=== PATIENT | female | born 1970 | race Caucasian/White ===

== ENCOUNTER 2018-04-24 19:39 | Emergency (ER) | payer OTHER ==
[~2018-04-24] VITALS: Ht 175.3 cm; Wt 136.1 kg
[2018-04-24 20:30] VITALS: BP 161/114
[2018-04-24] MEDS ORDERED: SULF1TAB24 PO (21:22)
[2018-04-24] MEDS ORDERED: MUPI22OI2 TP (21:22)
--- NOTE | 2018-04-24 21:22 | PHYS DOC ---
Adult General Chief Complaint Chief Complaint: INSECT BITE HPI HPI Patient is a 48 year old [f__sex] who presents with [] Review of Systems Review of Systems Constitutional: Denies fever or chills [] Eyes: Denies change in visual acuity, redness, or eye pain [] HENT: Denies nasal congestion or sore throat [] Respiratory: Denies cough or shortness of breath [] Cardiovascular: No additional information not addressed in HPI [] GI: Denies abdominal pain, nausea, vomiting, bloody stools or diarrhea [] : Denies dysuria or hematuria [] Musculoskeletal: Denies back pain or joint pain [] Integument: Denies rash or skin lesions [] Neurologic: Denies headache, focal weakness or sensory changes [] Endocrine: Denies polyuria or polydipsia [] All other systems were reviewed and found to be within normal limits, except as documented in this note. Physical Exam Physical Exam Constitutional: Well developed, well nourished, no acute distress, non-toxic appearance. [] HENT: Normocephalic, atraumatic, bilateral external ears normal, oropharynx moist, no oral exudates, nose normal. [] Eyes: PERRLA, EOMI, conjunctiva normal, no discharge. [] Neck: Normal range of motion, no tenderness, supple, no stridor. [] Cardiovascular:Heart rate regular rhythm, no murmur [] Lungs & Thorax: Bilateral breath sounds clear to auscultation [] Abdomen: Bowel sounds normal, soft, no tenderness, no masses, no pulsatile masses. [] Skin: Warm, dry, no erythema, no rash. [] Back: No tenderness, no CVA tenderness. [] Extremities: No tenderness, no cyanosis, no clubbing, ROM intact, no edema. [] Neurologic: Alert and oriented X 3, normal motor function, normal sensory function, no focal deficits noted. [] Psychologic: Affect normal, judgement normal, mood normal. [] EKG EKG [] Radiology/Procedures Radiology/Procedures [] Course & Med Decision Making Course & Med Decision Making Pertinent Labs and Imaging studies reviewed. (See chart for details) [] Dragon Disclaimer Dragon Disclaimer This electronic medical record was generated, in whole or in part, using a voice recognition dictation system. Departure Departure Impression: Primary Impression: Abscess Disposition: 01 HOME, SELF-CARE Condition: STABLE Referrals: AYLIN GARCIA MD (PCP) Patient Instructions: Abscess Additional Instructions: Use the antibiotics as directed. Follow-up with your primary care provider in one week if not improving or return to the emergency department if worsening. Scripts Mupirocin (MUPIROCIN OINTMENT) 22 Gm Oint...g. 1 JONATHAN TP TID for WOUND CARE, #1 TUBE Prov: OPAL LUCIANO APRN 04/24/18 Sulfamethoxazole/Trimethoprim (BACTRIM DS TABLET) 1 Each Tablet 1 TAB PO BID for abscess, #20 TAB Prov: OPAL LUCIANO APRN 04/24/18 OPAL LUCIANO APRN Apr 24, 2018 21:22
== END 2018-04-24 21:25 | disposition home or self-care (01) ==
LOC: ER 19:39
DX: N61.1 Abscess of the breast and nipple (principal)
CPT/HCPCS: 99283

== ENCOUNTER → 2018-07-19 | Outpatient (CLI) | payer OTHER ==
[~2018-07-19] MED LIST: MUPI22OI2 TP; SULF1TAB24 PO
--- NOTE | 2018-07-19 15:48 | RAD ---
KNEE RIGHT 3V History: RIGHT KNEE PAIN X 3 MONTHS NO KNOWN INJURY. 3 view right knee with bilateral AP standing knee. No prior study for comparison Mild narrowing of the medial joint compartment of the right knee with small marginal osteophytes. Tiny osteophytes at the tibial spines, lateral compartment and patellofemoral compartment. No acute fracture or aggressive bone destruction. No evidence of dislocation. No significant soft tissue abnormality. Bilateral standing images demonstrates degenerative changes at the left knee, particularly medial compartment with moderate narrowing. IMPRESSION: Primary osteoarthritis. Electronically signed by: Jori Reyes MD (07/19/2018 3:45 PM) [id number]
--- NOTE | 2018-07-19 15:57 | RAD ---
EXAM: Bilateral knees, standing view. HISTORY: Pain. COMPARISON: Radiographs obtained on the same date. FINDINGS: There is moderate left and mild right medial compartment joint space narrowing with subchondral sclerosis and spurring. There is mild left genu varus. There is a bone island within the proximal left tibia. IMPRESSION: 1. Moderate left and mild right medial compartment osteoarthritis of both knees. 2. Mild left genu varus. Electronically signed by: Jasmin Villa MD (07/19/2018 3:54 PM) [place] [id number]
== END | disposition home or self-care (01) ==
LOC: RAD 14:53
PROVIDERS: ATTEND Family Medicine
DX: M17.0 Bilateral primary osteoarthritis of knee (principal); M21.162 Varus deformity, not elsewhere classified, left knee; M25.761 Osteophyte, right knee
CPT/HCPCS: 73562; 73565

== ENCOUNTER → 2018-07-27 | Outpatient (CLI) | payer OTHER ==
--- NOTE | 2018-07-27 09:28 | KCIC ---
Bilateral digital screening mammograms: Reason for examination: Routine screening. Comparison is made to previous study dated 01/11/2014. Interpretation was made with the benefit of CAD. The skin and nipples show no abnormalities. No abnormal axillary lymph nodes are seen. The breast parenchyma shows scattered fibroglandular density. (Breast density: Category B.) There are no dominant masses, suspicious calcifications or architectural distortions. Impression: No evidence of malignancy. Recommend routine screening. BI-RADS Category 1: Negative. "Our facility is accredited by the [employer] Mammography [employer]." This patient's information has been entered into a reminder system for the patient to be notified with the results of her examination and a target date for the next mammogram. Electronically signed by: Barbara Cornejo MD (07/27/2018 9:25 AM) [id number]
== END | disposition home or self-care (01) ==
LOC: KCIC MAMMO 08:24
PROVIDERS: ATTEND Family Medicine
DX: Z12.31 Encounter for screening mammogram for malignant neoplasm of breast (principal)
CPT/HCPCS: 77067

== ENCOUNTER → 2018-10-25 | Outpatient (CLI) | payer OTHER ==
--- NOTE | 2018-10-25 17:51 | KCIC ---
Sonography of the right axillary region Clinical indications: Mass of the right axilla. FINDINGS: Sonography of the right axillary lump was performed. There is a subcutaneous hypoechoic solid appearing nodule. This connects to a skin mole. This measures 14 mm x 12 mm x 3 mm in size. There is some vascularity within it. IMPRESSION: Solid appearing subcutaneous nodule connected to a skin nodule. Electronically signed by: Brandon Landers MD (10/25/2018 5:48 PM) [place] [id number]
== END | disposition home or self-care (01) ==
LOC: KCIC US 08:29
PROVIDERS: ATTEND Family Medicine
DX: R22.31 Localized swelling, mass and lump, right upper limb (principal)
CPT/HCPCS: 76881

== ENCOUNTER 2020-03-30 20:41 | Emergency (ER) | payer BC, OTHER ==
[~2020-03-30] VITALS: Ht 177.8 cm; Wt 136.4 kg
[2020-03-30 21:00] VITALS: BP 141/81
[2020-03-30] MEDS ORDERED: CLIN150C14 PO (21:27)
[2020-03-30] MEDS ORDERED: FAMO20TA5 PO (21:27)
[2020-03-30] MEDS ORDERED: DIPH25CA58 PO (21:27)
[2020-03-30] MEDS ORDERED: METH4TAB2 PO (21:27)
--- NOTE | 2020-03-30 21:27 | PHYS DOC ---
Past Medical History Past Medical History: No Pertinent History (INGE RUTHERFORD APRN) Past Surgical History: (INGE RUTHERFORD APRN) Smoking Status: Never Smoker Alcohol Use: Occasionally Drug Use: None (INGE RUTHERFORD APRN) General Adult EDM: Chief Complaint: ABSCESS HPI: HPI: Patient is a 49 year old female no significant medical history who presents to the ED today complaining of what she believes is a spider bite on the left axilla that she noted 4 days ago. Patient states she had a subjective fever. She also reports a rash. Denies any anaphylactic type reaction symptoms. (INGE RUTHERFORD APRN) Review of Systems: Review of Systems: Constitutional: Denies fever or chills. [] Eyes: Denies change in visual acuity. [] HENT: Denies nasal congestion or sore throat. [] Respiratory: Denies cough or shortness of breath. [] Cardiovascular: Denies chest pain or edema. [] GI: Denies abdominal pain, nausea, vomiting, bloody stools or diarrhea. [] : Denies dysuria. [] Musculoskeletal: Denies back pain or joint pain. [] Integument: Reports spider bite to the left axilla Neurologic: Denies headache, focal weakness or sensory changes. [] Psychiatric: Denies depression or anxiety. [] (INGE RUTHERFORD APRN) Heart Score: Risk Factors: Risk Factors: DM, Current or recent (<one month) smoker, HTN, HLP, family history of CAD, obesity. Risk Scores: Score 0 - 3: 2.5% MACE over next 6 weeks - Discharge Home Score 4 - 6: 20.3% MACE over next 6 weeks - Admit for Clinical Observation Score 7 - 10: 72.7% MACE over next 6 weeks - Early Invasive Strategies (INGE RUTHERFORD APRN) Current Medications: Current Medications Medications (Trade) Dose Ordered Sig/Marcela Start Time Stop Time Status Last Admin Dose Admin Ceftriaxone Sodium (Rocephin Im) 1 gm 1X ONCE 03/30/20 21:30 03/30/20 21:31 Diphenhydramine HCl (Benadryl) 25 mg 1X ONCE 03/30/20 21:30 03/30/20 21:31 Famotidine (Pepcid) 20 mg 1X ONCE 12/5/20 21:30 03/30/20 21:31 Lidocaine HCl (Xylocaine-Mpf 1% 2ml Vial) 2 ml 1X ONCE 03/30/20 21:30 03/30/20 21:31 Methylprednisolone Sodium Succinate (SOLU-Medrol 125MG VIAL) 125 mg 1X ONCE 03/30/20 21:30 03/30/20 21:31 (INGE RUTHERFORD APRN) Allergies: Allergies: Allergies Coded Allergies Type Severity Reaction Last Updated Verified azithromycin Allergy Intermediate 03/30/20 Yes (INGE RUTHERFORD APRN) Physical Exam: PE: Constitutional: Well developed, well nourished, no acute distress, non-toxic appearance. [] HENT: Normocephalic, atraumatic, bilateral external ears normal, oropharynx moist, no oral exudates, nose normal. [] Eyes: PERRLA, EOMI, conjunctiva normal, no discharge. [] Neck: Normal range of motion, no tenderness, supple, no stridor. [] Cardiovascular:Heart rate regular rhythm, no murmur [] Lungs & Thorax: Bilateral breath sounds clear to auscultation [] Abdomen: Bowel sounds normal, soft, no tenderness, no masses, no pulsatile masses. [] Skin: Warm, dry, left axilla with a tiny area of blackness roughly 1 x 1 cm. Patient has diffuse erythematous macular rash on the chest and bilateral upper extremities Back: No tenderness, no CVA tenderness. [] Extremities: No tenderness, no cyanosis, no clubbing, ROM intact, no edema. [] Neurologic: Alert and oriented X 3, normal motor function, normal sensory function, no focal deficits noted. [] Psychologic: Affect normal, judgement normal, mood normal. [] (INGE RUTHERFORD APRN) Current Patient Data: Vital Signs: Vital Signs Date Time Temp Pulse Resp B/P (MAP) Pulse Ox O2 Delivery O2 Flow Rate FiO2 03/30/20 21:00 98.2 106 14 141/81 (101) 95 Room Air 98.2 (INGE RUTHERFORD APRN) EKG: EKG: [] (INGE RUTHERFORD APRN) Radiology/Procedures: Radiology/Procedures: [] (INGE RUTHERFORD APRN) Course & Med Decision Making: Course & Med Decision Making Pertinent Labs and Imaging studies reviewed. (See chart for details) This is a 49-year-old female patient presenting to the ED today with what she believes is a spider bite on the left axilla as well as a rash, symptoms began 3 days ago. Patient is afebrile in the ED. Was given Solu-Medrol, famotidine and Benadryl also given Rocephin. Discharged on clindamycin, Medrol Dosepak Pepcid and Benadryl. Follow-up with PCP next week. Tetanus is up-to-date. (INGE RUTHERFORD APRN) Dragon Disclaimer: Dragon Disclaimer: This electronic medical record was generated, in whole or in part, using a voice recognition dictation system. (INGE RUTHERFORD APRN) Departure Departure Impression: Primary Impression: Spider bite Qualified Codes: T63.304A - Toxic effect of unspecified spider venom, undetermined, initial encounter Disposition: 01 DC HOME SELF CARE/HOMELESS Condition: STABLE Referrals: Alexander IBRAHIM MD (PCP) Follow-up next week Patient Instructions: Spider Bite, [id number] Additional Instructions: You were evaluated in the emergency room for a spider bite. We put you on medications, take the medications as ordered until completed. Follow-up with your doctor next week. Come back to the ED at any point symptoms worsen. Scripts Clindamycin Hcl (CLINDAMYCIN HCL) 150 Mg Capsule 3 CAP PO TID, #90 CAP Prov: INGE RUTHERFORD APRN 03/30/20 Diphenhydramine Hcl (BENADRYL) 25 Mg Capsule 1 CAP PO Q6-8HRS PRN for RASH, #30 CAP 0 Refills Prov: INGE RUTHERFORD APRN 03/30/20 Famotidine (FAMOTIDINE) 20 Mg Tablet 20 MG PO DAILY, #7 TAB Prov: INGE RUTHERFORD APRN 03/30/20 Methylprednisolone (MEDROL) 4 Mg Tab.ds.pk 1 PKG PO UD, #1 PKG Prov: INGE RUTHERFORD APRN 03/30/20 Attending Signature Attending Signature I have reviewed the PA/CITY MANAGER's note and plan of care. I was available for consultation as needed during the patient's visit in the emergency department. I agree with the clinical impression, plan, and disposition. (AYLIN GUTIERREZ DO) INGE RUTHERFORD APRN Mar 30, 2020 21:27 AYLIN GUTIERREZ DO Mar 31, 2020 00:10
[2020-03-30] MEDS ORDERED: diphenhydrAMINE HCL 25 MG CAPSULE PO ONE (21:30)
[2020-03-30] MEDS ORDERED: cefTRIAXone IM 1 GM VIAL IM ONE (21:30)
[2020-03-30] MEDS ORDERED: methylPREDNISolone SOD SUCC PF 125 MG/2 ML VIAL. IM ONE (21:30)
[2020-03-30] MEDS ORDERED: FAMOTIDINE 20 MG TABLET. PO ONE (21:30)
[2020-03-30] MEDS ORDERED: LIDOCAINE 1% PF 2 ML VIAL. INJ ONE (21:30)
== END 2020-03-30 22:13 | disposition home or self-care (01) ==
LOC: ER 20:41
DX: S41.152A Open bite of left upper arm, initial encounter (principal); R50.9 Fever, unspecified; R21 Rash and other nonspecific skin eruption; Z98.890 Other specified postprocedural states; Z88.1 Allergy status to other antibiotic agents; W57.XXXA Bitten or stung by nonvenomous insect and other nonvenomous arthropods, initial encounter; Y93.89 Activity, other specified; Y92.89 Other specified places as the place of occurrence of the external cause; Y99.8 Other external cause status
CPT/HCPCS: 96372; 99284; J0696; J2930; J3490; Q0163